=== PATIENT | female | born 1965 | race Caucasian/White ===

== ENCOUNTER → 2017-08-23 | Outpatient (CLI) | payer OTHER ==
[~2017-08-23] MED LIST: ALLOPURINOL100 MG PO; ASPIR 8181 M1 PO; ERGOCALCIF50000 UNIT PO; FEOSOL325 MG PO; NOLVADEX20 MG PO
== END | disposition home or self-care (01) ==
LOC: OPR 06:59 → EDSTATUS 08:00
PROC: 0BBJ3ZX Excision of Left Lower Lung Lobe, Percutaneous Approach, Diagnostic (ICD-10-PCS; principal; 2017-08-23)
DX: R91.1 Solitary pulmonary nodule (principal); Z85.3 Personal history of malignant neoplasm of breast; E28.2 Polycystic ovarian syndrome; E04.2 Nontoxic multinodular goiter; I12.9 Hypertensive chronic kidney disease with stage 1 through stage 4 chronic kidney disease, or unspecified chronic kidney disease; N18.9 Chronic kidney disease, unspecified; Z90.11 Acquired absence of right breast and nipple
CPT/HCPCS: 71045; 77012; 85025; 85610; 85730; 88305; J3010